=== PATIENT | male | born 1980 | race Caucasian/White ===

== ENCOUNTER 2018-04-04 17:48 | Emergency (ER) | payer SELFPAY ==
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
== END 2018-04-04 18:24 | disposition home or self-care (01) ==
LOC: MW.ED 17:48
DX: Z04.1 Encounter for examination and observation following transport accident (principal); Z02.89 Encounter for other administrative examinations
CPT/HCPCS: 82962; 99283

== ENCOUNTER 2018-11-27 12:12 | Emergency (ER) | payer SELFPAY ==
--- NOTE | 2018-11-27 12:41 | EDM.PDOC ---
ED HPI GENERAL MEDICAL PROBLEM - General Chief Complaint: Skin Complaint Stated Complaint: CYST RIGHT ARM Time Seen by Provider: 11/27/18 12:35 Source of Information: Reports: Patient History Limitations: Reports: No Limitations - History of Present Illness INITIAL COMMENTS - FREE TEXT/NARRATIVE: HISTORY AND PHYSICAL: History of present illness: Patient is a 37-year-old male who presents to the emergency room today with complaints of an abscess to the right elbow. Patient reports that he is an IV drug user and 3 days ago he did inject "cocaine". He states shortly after he noticed the area become fluctuant and he was able to express some drainage from the site. Over the past 24 hours the area is just red and tender to palpation. Patient denies any fever, chills, headache, change in vision, syncope or near syncope. Denies any chest pain, back pain, neck pain/stiffness, shortness of breath or cough. Denies any abdominal pain, nausea, vomiting, diarrhea, constipation or dysuria. Has not noted any blood in urine or stool. Patient has been eating and drinking appropriately. Review of systems: As per history of present illness and below otherwise all systems reviewed and negative. Past medical history: As per history of present illness and as reviewed below otherwise noncontributory. Surgical history: As per history of present illness and as reviewed below otherwise noncontributory. Social history: See social history for further information Family history: As per history of present illness and as reviewed below otherwise noncontributory. Physical exam: General: Well-developed and well-nourished 37-year-old male. Alert and oriented. Nontoxic appearing and in no acute distress. HEENT: Atraumatic, normocephalic, pupils equal and reactive bilaterally, negative for conjunctival pallor or scleral icterus, mucous membranes moist, TMs normal bilaterally, throat clear, neck supple, nontender, trachea midline. No drooling or trismus noted. No meningeal signs. No hot potato voice noted. Lungs: Clear to auscultation, breath sounds equal bilaterally, chest nontender. Heart: S1S2, regular rate and rhythm without overt murmur Abdomen: Soft, nondistended, nontender. Skin: Approximately a golf ball sized area of erythema noted to the right lateral proximal forearm. Mild fluctuance in the center. Otherwise skin is intact, warm, dry. No lesions or rashes noted. Extremities: Moves all extremities per self without difficulty or deficits, negative for cords or calf pain. Neurovascular unremarkable. Neuro: Awake, alert, oriented. Cranial nerves II through XII unremarkable. Cerebellum unremarkable. Motor and sensory unremarkable throughout. Exam nonfocal. Notes: 1% lidocaine was used to anesthetize the area. Usual and customary procedures were followed for I&D. Was able to get a small amount of purulent drainage from the site. Does appear that the area started as abscess now a cellulitis. He is agreeable to getting some lab work. He currently afebrile. He declines an x-ray at this time stating that he is confident that there is no breaking of the needle. We'll put him on Bactrim DS and we reviewed signs and symptoms that would prompt him to come back to the emergency room. Supportive care measures were reviewed and discussed. Voices understanding and is agreeable to plan of care. Denies any further questions or concerns at this time. Diagnostics: CBC, Blood Culture x 2 Therapeutics: None Prescription: Bactrim DS Impression: Cellulitis Abscess Plan: 1. Keep the skin clean and dry. Continue to monitor for signs of improvement. Please do not poke or squeeze at the site. 2. Tylenol and/or ibuprofen as needed for pain management. 3. Follow-up with your primary care provider as we discussed. Return to the ED as needed and as discussed. Definitive disposition and diagnosis as appropriate pending reevaluation and review of above. - Related Data Allergies Allergy/AdvReac Type Severity Reaction Status Date / Time No Known Allergies Allergy Verified 11/27/18 12:32 Home Meds: Home Meds Sulfamethoxazole/Trimethoprim [Bactrim Ds Tablet] 1 each PO BID 10 Days #20 tablet 11/27/18 [Rx] Past Medical History - Past Health History Medical/Surgical History: Denies Medical/Surgical History HEENT History: Reports: None Cardiovascular History: Reports: None Respiratory History: Reports: None Gastrointestinal History: Reports: None Genitourinary History: Reports: None Neurological History: Reports: None Psychiatric History: Reports: Anxiety Endocrine/Metabolic History: Reports: None Hematologic History: Reports: None Immunologic History: Reports: None Oncologic (Cancer) History: Reports: None Dermatologic History: Reports: None - Infectious Disease History Infectious Disease History: Reports: None - Past Surgical History Head Surgeries/Procedures: Reports: None Musculoskeletal Surgical History: Reports: Other (See Below) Other Musculoskeletal Surgeries/Procedures:: hand and ankle surgery in the past Social & Family History - Family History Family Medical History: Noncontributory - Tobacco Use Smoking Status *Q: Current Every Day Smoker Years of Tobacco use: 10 Packs/Tins Daily: 0.5 - Caffeine Use Caffeine Use: Reports: Coffee - Recreational Drug Use Recreational Drug Use: Yes Drug Use in Last 12 Months: Yes Recreational Drug Type: Reports: Cocaine, Marijuana/Hashish Recreational Drug Use Frequency: Socially ED ROS GENERAL - Review of Systems Review Of Systems: ROS reveals no pertinent complaints other than HPI. ED EXAM, SKIN/RASH Exam: See Below (See dictation) Course - Vital Signs Last Recorded V/S: Last Vital Signs Temp 96.7 F 11/27/18 12:30 Pulse 68 11/27/18 12:30 Resp 16 11/27/18 12:30 BP 111/78 11/27/18 12:30 Pulse Ox 99 11/27/18 12:30 - Orders/Labs/Meds Orders: Active Orders 24 hr Category Date Time Status CBC WITH AUTO DIFF [HEME] Stat Lab 11/27/18 12:52 Ordered COMPREHENSIVE METABOLIC PN,CMP [CHEM] Stat Lab 11/27/18 12:53 Stop Req CULTURE BLOOD [BC] Stat Lab 11/27/18 12:54 Ordered CULTURE BLOOD [BC] Stat Lab 11/27/18 12:54 Ordered Blood Culture x2 Reflex Set [OM.PC] Stat Oth 11/27/18 12:53 Ordered Meds: Medications Discontinued Medications Generic Name Dose Route Start Last Admin Trade Name Ana Maria PRN Reason Stop Dose Admin Bacitracin 1 dose 11/27/18 13:30 Bacitracin Oint 1 Gm TOP 11/27/18 13:31 ONETIME ONE Ceftriaxone Sodium 1 gm 11/27/18 12:53 Rocephin IM 11/27/18 12:54 ONETIME ONE Lidocaine HCl 5 ml 11/27/18 12:57 Xylocaine-Mpf 1% INJECT 11/27/18 12:58 ONETIME ONE Departure - Departure Time of Disposition: 13:39 Disposition: Home, Self-Care 01 Clinical Impression: Abscess Cellulitis Qualifiers: Site of cellulitis: extremity Site of cellulitis of extremity: upper extremity Laterality: right Qualified Code(s): L03.113 - Cellulitis of right upper limb - Discharge Information Prescriptions: Sulfamethoxazole/Trimethoprim [Bactrim Ds Tablet] 1 each PO BID 10 Days #20 tablet Instructions: Skin Abscess, [id number] Referrals: PCP,None [Primary Care Provider] - Forms: ED Department Discharge Additional Instructions: The following information is given to patients seen in the emergency department who are being discharged to home. This information is to outline your options for follow-up care. We provide all patients seen in our emergency department with a follow-up referral. The need for follow-up, as well as the timing and circumstances, are variable depending upon the specifics of your emergency department visit. If you don't have a primary care physician on staff, we will provide you with a referral. We always advise you to contact your personal physician following an emergency department visit to inform them of the circumstance of the visit and for follow-up with them and/or the need for any referrals to a consulting specialist. The emergency department will also refer you to a specialist when appropriate. This referral assures that you have the opportunity for follow-up care with a specialist. All of these measure are taken in an effort to provide you with optimal care, which includes your follow-up. Under all circumstances we always encourage you to contact your private physician who remains a resource for coordinating your care. When calling for follow-up care, please make the office aware that this follow-up is from your recent emergency room visit. If for any reason you are refused follow-up, please contact the [facility] Emergency Department at and asked to speak to the emergency department charge nurse. [facility] [address] [place] [address] [id number] [address] [address] 1. Keep the skin clean and dry. Continue to monitor for signs of improvement. Please do not poke or squeeze at the site. 2. Tylenol and/or ibuprofen as needed for pain management. 3. Follow-up with your primary care provider as we discussed. Return to the ED as needed and as discussed. - My Orders Last 24 Hours: My Active Orders 11/27/18 12:52 CBC WITH AUTO DIFF [HEME] Stat 11/27/18 12:53 COMPREHENSIVE METABOLIC PN,CMP [CHEM] Stat Blood Culture x2 Reflex Set [OM.PC] Stat 11/27/18 12:54 CULTURE BLOOD [BC] Stat CULTURE BLOOD [BC] Stat - Assessment/Plan Last 24 Hours: My Active Orders 11/27/18 12:52 CBC WITH AUTO DIFF [HEME] Stat 11/27/18 12:53 COMPREHENSIVE METABOLIC PN,CMP [CHEM] Stat Blood Culture x2 Reflex Set [OM.PC] Stat 11/27/18 12:54 CULTURE BLOOD [BC] Stat CULTURE BLOOD [BC] Stat
[2018-11-27] MEDS ORDERED: cefTRIAXone 1 GM Vial IM ONE (12:53)
[2018-11-27] MEDS ORDERED: Bacitracin Oint 1 GM U/D Packet TOP ONE (13:30)
== END 2018-11-27 14:08 | disposition home or self-care (01) ==
LOC: MW.ED 12:12
DX: L02.413 Cutaneous abscess of right upper limb (principal); L03.113 Cellulitis of right upper limb; F17.210 Nicotine dependence, cigarettes, uncomplicated; Z79.899 Other long term (current) drug therapy
CPT/HCPCS: 10060; 36415; 85025; 87040; 96372; 99283; J0696; J2001